=== PATIENT | male | born 1985 | race Caucasian/White ===

== ENCOUNTER 2016-09-09 20:37 | Emergency (ER) | payer OTHER ==
[~2016-09-09] VITALS: Ht 170.2 cm; Wt 82.5 kg
[2016-09-09 20:40] VITALS: TEMP 36.7; Ht 170.2 cm; Wt 82.5 kg
[2016-09-09] MEDS ORDERED: MoRPHine SULFATE 4 MG/ML 1 ML CARP\\VIAL IV STA (21:01)
[2016-09-09] MEDS ORDERED: SODIUM CHLORIDE 0.9% 1000ML 1,000 ML IV STA ×2 (21:01→23:17)
[2016-09-09] MEDS ORDERED: ONDANSETRON INJ 2 MG/ML 2 ML VIAL IV STA (21:01)
[2016-09-09] MEDS ORDERED: HYDROmorphone INJ 1 MG/ML SYR IV STA (21:32)
[2016-09-09] MEDS ORDERED: KETOROLAC TROMETHAMINE 30 MG/ML VIAL IV STA (21:32)
[2016-09-09] MEDS ORDERED: GABA-112 PO (21:38)
[2016-09-09] MEDS ORDERED: LISI-729 PO (21:38)
[2016-09-09] MEDS ORDERED: BACL10TA PO (21:38)
[2016-09-09 22:07] LABS: BASO % 0.3 %; BASO ABS # 0.03 K/uL (0-0.2); COMPLETE YES; EOS % 1.5 %; HEMATOCRIT 43.2 % (42-52); IG% 0.3 %; LYMPH % 23.5 %; LYMPH ABS # 2.69 K/uL (1.2-3.4); MEAN CELL VOLUME 86.9 fL (80-100); MEAN CORPUSCULAR HEMOGLOBIN 31.2 pg (25-34); MEAN CORPUSCULAR HGB CONC 35.9 g/dl (32-36); MEAN PLATELET VOLUME 11.4 fL (7.4-10.4); MONO % 4.9 %; NEUT % 69.5 %; PLATELET COUNT 219 K/uL (130-400); RED BLOOD COUNT 4.97 M/uL (4.7-6.1); WHITE BLOOD COUNT 11.43 K/uL (4.8-10.8)
--- NOTE | 2016-09-09 22:22 | DIAGNOSTIC IMAGING REPORT ---
ADDENDUM Impression #3. Mild thickening of the distal esophagus. Electronically signed by: Nigel French M.D. 09/09/2016 10:28 PM Dictated Date/Time: 09/09/2016 10:28 PM ORIGINAL REPORT ABDOMEN AND PELVIS CT WITHOUT CONTRAST CT DOSE: 920.61 mGy.cm HISTORY: Right-sided flank pain. TECHNIQUE: Multiaxial CT images of the abdomen and pelvis were performed without the use of intravenous and oral contrast according to the standard department stone protocol. COMPARISON STUDY: None. FINDINGS: Mild bibasilar subsegmental atelectasis. No suspicious lytic or blastic osseous lesions. Mild thickening of the distal esophagus. Tiny fat-containing umbilical hernia. The unenhanced liver, spleen, adrenal glands, pancreas, and gallbladder are unremarkable. There is a punctate stone within the left kidney. There is a 3 mm stone at the right ureteropelvic junction resulting in mild right hydronephrosis. There is associated perinephric/proximal periureteral edema. No additional right renal calculi. The bladder is unremarkable. No retroperitoneal lymphadenopathy. Suboptimal evaluation for bowel pathology due to the lack of intravenous and oral contrast. However, there is no definite bowel wall thickening or obstruction. Normal appendix. IMPRESSION: 1. A 3 mm obstructing stone within the right ureteropelvic junction resulting in mild right hydronephrosis. 2. Left-sided nephrolithiasis. Electronically signed by: Nigel French M.D. 09/09/2016 10:21 PM Dictated Date/Time: 09/09/2016 10:14 PM
[2016-09-09 22:37] LABS: BUN/CREATININE RATIO 11.1 (10-20); CALCIUM 8.7 mg/dl (8.5-10.1); CREATININE 1.5 mg/dl (0.60-1.40); POTASSIUM 3.1 mmol/L (3.5-5.1)
[2016-09-10] MEDS ORDERED: HYDROmorphone INJ 1 MG/ML SYR IV STA (00:16)
[2016-09-10 00:40] LABS: URINE APPEARANCE CLEAR (CLEAR); URINE BILIRUBIN NEG (NEG); URINE COLOR YELLOW; URINE EPITHELIAL CELL AUTO 0-5 /lpf (0-5); URINE NITRITE NEG (NEG); URINE SPECIFIC GRAVITY 1.021 (1.000-1.030); UROBILINOGEN NEG (NEG)
[2016-09-10 00:43] LABS: MANUAL MICROSCOPIC REQUIRED? NO; REVIEW REQ? NO
[2016-09-10] MEDS ORDERED: OXYCODONE IR HOME PACK PO ONE (01:00)
[2016-09-10] MEDS ORDERED: OXYC1TAB3 PO (01:00)
[2016-09-10 01:24] VITALS: BP 126/67; PULSE 65; O2SAT 97
--- NOTE | 2016-09-10 01:34 | EMERGENCY ROOM VISIT NOTE ---
History Report prepared by Aram: Meghan Montoya Under the Supervision of: Dr. Jad Garcia M.D. First contact with patient: 20:57 Chief Complaint: GROIN PAIN Stated Complaint: SHARP PAIN IN GROIN AND RIGHT SIDE/VOMITING History of Present Illness The patient is a 30 year old male who presents to the Emergency Room with complaints of worsening right-sided groin pain for the past few hours. He describes his pain as sharp and rates it as a 4/10 in severity. His pain radiates into the right side of his back. He notes right testicular pain as well as nausea and vomiting. He denies any swelling or redness to the testicle. The patient denies fever, urinary symptoms, numbness, and weakness. He denies any personal or family history of kidney stones. Source of History: patient Onset: a few hours ago Position: other (right groin) Symptom Intensity: 4/10 Quality: sharp Timing: worsening Associated Symptoms: + nausea, + vomiting, No fevers, No numbness, No urinary symptoms, No weakness Note: Pt notes right testicular pain. Review of Systems See HPI for pertinent positives & negatives. A total of 10 systems reviewed and were otherwise negative. Past Medical & Surgical Medical Problems: (1) Hypertension (2) Neuropathy Family History No pertinent history stated. Social History Smoking Status: Never Smoker Marital Status: Housing Status: lives with significant other Occupation Status: employed Current/Historical Medications Scheduled Baclofen (Lioresal), 5 MG PO BID Gabapentin (Neurontin), 200 MG PO BID Lisinopril (Prinivil), 5 MG PO DAILY Scheduled PRN Oxycodone Ir (Roxicodone Ir), 5 MG PO Q4H PRN for Pain Allergies Coded Allergies: Ciprofloxacin (Verified Allergy, Severe, possible nerve problems, 09/09/16) Physical Exam Vital Signs Date Time Temp Pulse Resp B/P Pulse Ox O2 Delivery O2 Flow Rate FiO2 09/10/16 01:24 65 18 126/67 97 09/10/16 00:07 71 119/69 98 Room Air 09/09/16 22:06 97 136/77 95 Room Air 09/09/16 20:40 36.7 81 18 148/83 100 Room Air Physical Exam Constitutional: Vital signs reviewed. Eyes: Pupils are equal round reactive to light. Conjunctiva are noninjected. ENT: Pharynx is clear without erythema or exudate. Mucous membranes are moist. Neck supple without meningeal signs. Respiratory: Clear to auscultation bilaterally. Breath sounds are equal bilaterally. Cardiovascular: Regular rate and rhythm. No rubs or gallops. GI: Soft, nondistended and nontender. Bowel sounds are present. Musculoskeletal: No peripheral edema. No CVA tenderness. Integumentary: No cyanosis. Neurological: The patient is awake and alert. No focal deficits. Psychiatric: Normal affect. Medical Decision & Procedures ER Provider Diagnostic Interpretation: Radiology results as stated below per my review and the radiologist's interpretation: ADDENDUM Impression #3. Mild thickening of the distal esophagus. Electronically signed by: Nigel French M.D. 09/09/2016 10:28 PM Dictated Date/Time: 09/09/2016 10:28 PM ORIGINAL REPORT ABDOMEN AND PELVIS CT WITHOUT CONTRAST CT DOSE: 920.61 mGy.cm HISTORY: Right-sided flank pain. TECHNIQUE: Multiaxial CT images of the abdomen and pelvis were performed without the use of intravenous and oral contrast according to the standard department stone protocol. COMPARISON STUDY: None. FINDINGS: Mild bibasilar subsegmental atelectasis. No suspicious lytic or blastic osseous lesions. Mild thickening of the distal esophagus. Tiny fat-containing umbilical hernia. The unenhanced liver, spleen, adrenal glands, pancreas, and gallbladder are unremarkable. There is a punctate stone within the left kidney. There is a 3 mm stone at the right ureteropelvic junction resulting in mild right hydronephrosis. There is associated perinephric/proximal periureteral edema. No additional right renal calculi. The bladder is unremarkable. No retroperitoneal lymphadenopathy. Suboptimal evaluation for bowel pathology due to the lack of intravenous and oral contrast. However, there is no definite bowel wall thickening or obstruction. Normal appendix. IMPRESSION: 1. A 3 mm obstructing stone within the right ureteropelvic junction resulting in mild right hydronephrosis. 2. Left-sided nephrolithiasis. Electronically signed by: Nigel French M.D. 09/09/2016 10:21 PM Dictated Date/Time: 09/09/2016 10:14 PM Laboratory Results 09/09/16 20:55 Red Blood Count 4.97, Mean Corpuscular Volume 86.9, Mean Corpuscular Hemoglobin 31.2, Mean Corpuscular Hemoglobin Concent 35.9, Mean Platelet Volume 11.4, Neutrophils (%) (Auto) 69.5, Lymphocytes (%) (Auto) 23.5, Monocytes (%) (Auto) 4.9, Eosinophils (%) (Auto) 1.5, Basophils (%) (Auto) 0.3, Neutrophils # (Auto) 7.95, Lymphocytes # (Auto) 2.69, Monocytes # (Auto) 0.56, Eosinophils # (Auto) 0.17, Basophils # (Auto) 0.03 09/09/16 20:55 Test 09/09/16 00:10 09/09/16 20:55 Urine Color YELLOW Urine Appearance CLEAR (CLEAR) Urine pH 6.0 (4.5-7.5) Urine Specific [place] 1.021 (1.000-1.030) Urine Protein NEG (NEG) Urine Glucose (UA) NEG (NEG) Urine Ketones NEG (NEG) Urine Occult Blood 3+ (NEG) Urine Nitrite NEG (NEG) Urine Bilirubin NEG (NEG) Urine Urobilinogen NEG (NEG) Urine Leukocyte Esterase NEG (NEG) Urine WBC (Auto) 1-5 /hpf (0-5) Urine RBC (Auto) >30 /hpf (0-4) Urine Hyaline Casts (Auto) 0 /lpf (0-5) Urine Epithelial Cells (Auto) 0-5 /lpf (0-5) Urine Bacteria (Auto) NEG (NEG) White Blood Count 11.43 K/uL (4.8-10.8) Red Blood Count 4.97 M/uL (4.7-6.1) Hemoglobin 15.5 g/dL (14.0-18.0) Hematocrit 43.2 % (42-52) Mean Corpuscular Volume 86.9 fL (80-100) Mean Corpuscular Hemoglobin 31.2 pg (25-34) Mean Corpuscular Hemoglobin Concent 35.9 g/dl (32-36) Platelet Count 219 K/uL (130-400) Mean Platelet Volume 11.4 fL (7.4-10.4) Neutrophils (%) (Auto) 69.5 % Lymphocytes (%) (Auto) 23.5 % Monocytes (%) (Auto) 4.9 % Eosinophils (%) (Auto) 1.5 % Basophils (%) (Auto) 0.3 % Neutrophils # (Auto) 7.95 K/uL (1.4-6.5) Lymphocytes # (Auto) 2.69 K/uL (1.2-3.4) Monocytes # (Auto) 0.56 K/uL (0.11-0.59) Eosinophils # (Auto) 0.17 K/uL (0-0.5) Basophils # (Auto) 0.03 K/uL (0-0.2) RDW Standard Deviation 37.3 fL (36.4-46.3) RDW Coefficient of Variation 11.8 % (11.5-14.5) Immature Granulocyte % (Auto) 0.3 % Immature Granulocyte # (Auto) 0.03 K/uL (0.00-0.02) Anion Gap 12.0 mmol/L (3-11) Est Creatinine Clear Calc Drug Dose 72.7 ml/min Estimated GFR () 70.4 Estimated GFR (Non- 60.7 BUN/Creatinine Ratio 11.1 (10-20) Calcium Level 8.7 mg/dl (8.5-10.1) Total Bilirubin 0.4 mg/dl (0.2-1) Direct Bilirubin 0.1 mg/dl (0-0.2) Aspartate Amino Transf (AST/SGOT) 18 U/L (15-37) Alanine Aminotransferase (ALT/SGPT) 38 U/L (12-78) Alkaline Phosphatase 103 U/L (45-117) Total Protein 7.9 gm/dl (6.4-8.2) Albumin 4.1 gm/dl (3.4-5.0) Lipase 287 U/L (73-393) Laboratory results as reviewed by me. Medications Administered Medications (Trade) Dose Ordered Sig/Belia Route Start Time Stop Time Status Last Admin Dose Admin Sodium Chloride (Nss 1000ml) 1,000 ml @ 999 mls/hr Q1H1M STAT IV 09/09/16 21:01 09/09/16 22:01 DC 09/09/16 21:20 999 MLS/HR Morphine Sulfate (MoRPHine SULFATE INJ) 4 mg NOW STAT IV 09/09/16 21:01 09/09/16 21:02 DC 09/09/16 21:21 4 MG Ondansetron HCl (Zofran Inj) 4 mg NOW STAT IV 09/09/16 21:01 09/09/16 21:02 DC 09/09/16 21:20 4 MG Hydromorphone HCl (Dilaudid Inj) 0.5 mg NOW STAT IV 09/09/16 21:32 09/09/16 21:33 DC 09/09/16 21:39 0.5 MG Ketorolac Tromethamine 10 mg 10 mg NOW STAT IV 09/09/16 21:32 09/09/16 21:33 DC 09/09/16 21:40 10 MG Sodium Chloride (Nss 1000ml) 1,000 ml @ 999 mls/hr Q1H1M STAT IV 09/09/16 23:17 09/10/16 00:17 DC 09/09/16 23:17 999 MLS/HR Hydromorphone HCl (Dilaudid Inj) 0.5 mg NOW STAT IV 09/10/16 00:16 09/10/16 00:17 DC 09/10/16 00:27 0.5 MG ED Course 2056: The patient was evaluated in room B8. A complete history and physical exam was performed. 2100: Zofran 4 mg IV, Morphine sulfate 4 mg IV, NSS 1000 ml @ 999 mls/hr IV 0: I reassessed the patient and he is still complaining of pain. 2: Toradol 10 mg IV, Dilaudid 0.5 mg IV 2228: The patient is feeling better and resting comfortably. 2315: I reassessed the patient at this time and updated him on the results. He is unable to urinate. 2317: NSS 1000 ml @ 999 mls/hr IV 2351: I updated the patient on the amended CT results and answered his questions. We are still waiting for him to urinate. 0016: Dilaudid 0.5 mg IV 0055: I reassessed the patient at this time. He is feeling better and resting comfortably. I discussed the results and treatment plan with the patient. I answered all pertaining questions that he had. He expressed understanding and verbalized agreement. The patient will be discharged home. 0100: Oxycodone HCl 1 homepack PO Medical Decision This is a 30-year-old male who presents with right flank pain. Differential diagnosis includes renal colic, ureterolithiasis, hydronephrosis, strain, appendicitis. I did perform a limited focused review of portions of the patient 's old chart on the electronic medical record. The patient has had no recent pertinent visits to this hospital. I did evaluate the patient as noted above. IV access was established. I did treat the patient with IV Zofran and morphine. He was given a liter normal saline IV. He had additional pain and was given Dilaudid 0.5 mg IV. I did order and personally review the patient's urinalysis as described above. There is no signs of infection. I did order and review the patient's blood work as noted in the electronic medical record. I did order a CT of the abdomen and pelvis. I did review the images myself as well as the radiology report as described above. He does have a 3 mm right UPJ stone with mild hydronephrosis. He also has some thickening to the distal esophagus. I did discuss the test results with the patient. He was feeling better but then had recurrent pain and was given another small dose of Dilaudid IV and Toradol IV. On reassessment he is feeling better and feels ready for discharge. He was given a prescription for OxyIR and given precautions regarding this medication. He was discharged in good condition and given return instructions as outlined below. He will follow up with his doctor regarding the findings on a CT scan as well as the esophageal findings. Impression Primary Impression: Renal colic Scribe Attestation The scribe's documentation has been prepared under my direct and personally reviewed by me in its entirety. I confirm that the note above accurately reflects all work, treatment, procedures, and medical decision making performed by me. Departure Information Dispostion Home / Self-Care Prescriptions Oxycodone Ir (Roxicodone Ir) 5 Mg Tab 5 MG PO Q4H Y for Pain, #20 TAB Prov: Jad Garcia M.D. 09/10/16 Referrals No Doctor, Assigned Forms HOME CARE DOCUMENTATION FORM, IMPORTANT VISIT INFORMATION, WORK / SCHOOL INSTRUCTIONS Patient Instructions Kidney Stones Expectant Therapy, My [facility] Additional Instructions You have been examined and treated today on an emergency basis only. This is not a substitute for, or an effort to provide, complete comprehensive medical care. It is impossible to recognize and treat all injuries or illnesses in a single emergency department visit. It is therefore important that you follow up closely with your physician. Call as soon as possible for an appointment. Return for worsening symptoms or if you develop fever, vomiting, or any other concerning symptoms.
== END 2016-09-10 01:25 | disposition home or self-care (01) ==
LOC: C.EDB 20:40
DX: N23 Unspecified renal colic (principal); N13.1 Hydronephrosis with ureteral stricture, not elsewhere classified; K22.8 Other specified diseases of esophagus; K42.9 Umbilical hernia without obstruction or gangrene; I10 Essential (primary) hypertension